=== PATIENT | female | born 1985 | race Caucasian/White ===

== ENCOUNTER 2023-11-07 16:43 | Emergency (ER) | payer MEDICAID ==
[~2023-11-07] VITALS: Ht 157.5 cm; Wt 75.0 kg
[2023-11-07 17:07] VITALS: TEMP 98.4
[2023-11-07 18:42] VITALS: BP 108/79; PULSE 88
== END 2023-11-07 18:42 | disposition home or self-care (01) ==
LOC: COL.ER 16:43
DX: S20.229A Contusion of unspecified back wall of thorax, initial encounter (principal); M54.2 Cervicalgia; V89.2XXA Person injured in unspecified motor-vehicle accident, traffic, initial encounter; Y92.410 Unspecified street and highway as the place of occurrence of the external cause